=== PATIENT | female | born 1945 | race Caucasian/White ===

== ENCOUNTER 2016-07-03 11:44 | Emergency (ER) | payer OTHER ==
[~2016-07-03] VITALS: Ht 160 cm; Wt 113.4 kg
--- NOTE | ~2016-07-03 | EKG ---
[place] [address] [facility] [place] [address] ELECTROCARDIOGRAM REPORT Name: SHIRLEY RANGEL Room #: [facility]#: [id number] Admission: Attend Phys: Discharge: Date of : 47 Report #: [id number] THIS REPORT FOR: //name// [facility] ED Test Date: 2016-07-03 Test Time: 11:52:20 Pat Name: SHIRLEY RANGEL Department: Room: Gender: F [employer] Operator: : 1945 Requested By: Queta Solomon Order Number: [id number] MD: Rufino Kulkarni Measurements Intervals [place] Rate: 62 P: 51 ND: 160 QRS: 43 QRSD: 118 T: 40 QT: 400 QTc: 407 Interpretive Statements Sinus rhythm Atrial premature complexes Nonspecific ST and T wave abnormality No previous ECG available for comparison Electronically Signed On 07-03-2016 13:28:59 [employer] by Rufino Kulkarni [email or web address] <ELECTRONICALLY SIGNED> By: Rufino Kulkarni MD, [facility] 07/03/16 1328 1152 1152 Rufino Kulkarni MD, FACC /EPI
[~2016-07-03 11:44] MED LIST: AMBEREN PO; ASPIRIN EC325 M1 PO; COZAAR 25 MG TA25 MG PO; COZAAR 50 MG TA50 MG PO; HYDROCHLOROTH12.5 MG PO; HYDROCHLOROTHIA25 M1 PO; NORCO 5-325 TA1 EACH PO; NORFLEX100 MG PO; SYNTHROID150 MCG PO; SYNTHROID75 MCG PO; TOPROL XL50 MG PO
[2016-07-03] MEDS ORDERED: HYZAAR 50-12.51 EACH PO (12:17)
[2016-07-03 12:18] LABS: ABSOLUTE NEUTROPHILS 4.4 thou/uL (1.4-8.2); BASOPHILS 0.6 % (0.0-2.0); HEMATOCRIT 38.3 % (37.0-47.0); HEMOGLOBIN 13.1 gm/dL (12.0-15.0); LYMPHOCYTES 32.4 % (24.0-44.0); MCH 29.7 pg (26.0-34.0); MCHC 34.2 % (28.0-37.0); MCV 86.8 fL (80.0-100.0); MONOCYTES 6.3 % (1.0-8.0); PLATELET COUNT 175 thou/uL (150-400); POLYS 58.7 % (36.0-66.0); RBC 4.41 mil/uL (4.20-5.00); RDW 13.7 % (10.5-14.5); WBC 7.5 thou/uL (4.0-11.0)
[2016-07-03] MEDS ORDERED: LEVOTHYROXINE 0.1 MG PO (12:18)
[2016-07-03 12:19] LABS: MANUAL DIFF NO
[2016-07-03 12:28] LABS: ANION GAP 7 mmol/L (7-16); BUN 18 mg/dL (7-18); CALCIUM 9.2 mg/dL (8.5-10.1); CHLORIDE 100 mmol/L (98-107); CO2 31 mmol/L (21-32); GLUCOSE 142 mg/dL (70-99); POTASSIUM 3.4 mmol/L (3.5-5.1); SODIUM 138 mmol/L (136-145)
[2016-07-03 12:37] LABS: ALBUMIN 3.2 g/dL (3.4-5.0); ALKALINE PHOSPHATASE 88 U/L (46-116); SGOT 30 U/L (15-37); SGPT 38 U/L (30-65); TOTAL BILIRUBIN 0.5 mg/dL (<0.1-1.0); TOTAL PROTEIN 7.1 g/dL (6.4-8.2); TROPONIN-I < 0.04 ng/mL (<0.04-0.07)
[2016-07-03 14:12] LABS: URINE BILIRUBIN NEGATIVE (Negative); URINE BLOOD NEGATIVE (Negative); URINE COLOR YELLOW; URINE GLUCOSE-RANDOM* NEGATIVE (Negative); URINE KETONES NEGATIVE (Negative); URINE NITRITE NEGATIVE (Negative); URINE PROTEIN (DIPSTICK) NEGATIVE (Negative); URINE SPECIFIC GRAVITY 1.025 (1.003-1.035); URINE UROBILINOGEN 0.2 E.U./dl (0.2-1.0)
[2016-07-03 15:44] VITALS: BP 113/55
[2016-07-03 20:09] LABS: FREE T4 1.35 ng/dL (0.82-1.77); TSH 3.22 uIU/mL (0.450-4.500)
== END 2016-07-03 15:45 | disposition home or self-care (01) ==
LOC: ER 11:44
PROVIDERS: Emergency Medicine; Physician Assistant
DX: R00.2 Palpitations (principal); I10 Essential (primary) hypertension; E03.9 Hypothyroidism, unspecified; Z88.1 Allergy status to other antibiotic agents; Z88.8 Allergy status to other drugs, medicaments and biological substances; Z90.49 Acquired absence of other specified parts of digestive tract

== ENCOUNTER → 2017-04-10 | Outpatient (CLI) | payer OTHER ==
[~2017-04-10] VITALS: Ht 160 cm; Wt 112.0 kg
[~2017-04-10] MED LIST changes: +CENTRUM SILVER1 EAC4 PO; +HYZAAR 50-12.51 EACH PO; +LEVOTHYROXINE 0.1 MG PO; +PEPCID20 MG PO; +TUMS PO
--- NOTE | ~2017-04-10 | P ---
[facility] [place] [address] PROCEDURE REPORT Name: SHIRLEY RANGEL Room #: [facility]#: [id number] Admission: 04/10/17 Attend Phys: James Lam MD Discharge: Date of : 47 Report #: [id number] THIS REPORT FOR: //name// CC: James Gaxiola MD BRIEF HISTORY: The patient is a 71-year-old woman for average risk screening colonoscopy. PREOPERATIVE DIAGNOSIS: Average risk screening colonoscopy. POSTOPERATIVE DIAGNOSES: 1. Diverticulosis coli, right and left colon. 2. . MEDICATIONS: Deep sedation with propofol per anesthesia. SPECIMEN: None. ESTIMATED BLOOD LOSS: None. PROCEDURE: Colonoscopy to cecum and terminal ileum. FINDINGS: Prior to propofol sedation, procedure of colonoscopy was discussed with the patient as well as potential risks, benefits, and complications. She indicates she understands and desires to proceed. With the patient in left lateral decubitus position, digital examination was completed, which revealed no abnormalities. Subsequently, the [employer] video colonoscope was introduced into the rectum, advanced under direct vision to the cecum. Done with minimal difficulty. The cecum was identified by the ileocecal valve and the appendiceal orifice. I was able to visualize the distal segment of terminal ileum, which was inspected and noted to be unremarkable. At that point, the scope was slowly withdrawn and careful circumferential views obtained. Upon slow withdrawal of the scope, the prep was good. The mucosa was within normal limits, normal vascular pattern, and normal light reflex. She was noted to have moderately severe diverticular disease of the ascending colon without an endoscopic evidence of diverticulitis. Minimal diverticular disease was seen in the transverse colon, left colon, she had moderately severe diverticular disease most notably in the sigmoid colon and without evidence of diverticulitis. No neoplastic lesions were seen. Scope was withdrawn into the rectum and no abnormalities were noted. Upon retroflexion, no abnormalities were noted. Scope was withdrawn. The patient tolerated the procedure well. CONDITION OF THE PATIENT UPON DISCHARGE: Following procedure, the patient drowsy, aroused, conversant and will be discharged home when fully ambulatory. [facility] [address] [place] [address] PROCEDURE REPORT Name: SHIRLEY RANGEL Room #: [facility]#: [id number] Admission: 04/10/17 Attend Phys: James Lam MD Discharge: Date of : 47 Report #: [id number] INSTRUCTIONS TO THE PATIENT AND FAMILY AT THE TIME OF DISCHARGE: No neoplastic lesions were seen. She has is considered average risk. Therefore, I would suggest a followup colon exam in 10 years for an average risk patient. I would also suggest a high fiber diet for her diverticular disease. She will return to care of Dr. Matty Gaxiola and return to see me as needed. Last colonoscopy was 10 years ago. Withdrawal time from the cecum was 13 minutes and 6 seconds. <ELECTRONICALLY SIGNED> By: James Lam MD 04/10/17 [id number] 1245 James Lam MD /nt
== END ==
LOC: GI 06:52
DX: Z12.11 Encounter for screening for malignant neoplasm of colon (principal); K57.30 Diverticulosis of large intestine without perforation or abscess without bleeding; I10 Essential (primary) hypertension; I50.9 Heart failure, unspecified; I49.9 Cardiac arrhythmia, unspecified; E03.8 Other specified hypothyroidism; K21.9 Gastro-esophageal reflux disease without esophagitis; Z79.899 Other long term (current) drug therapy; Z88.8 Allergy status to other drugs, medicaments and biological substances; Z96.652 Presence of left artificial knee joint
CPT/HCPCS: 62110

== ENCOUNTER 2019-04-29 08:59 | Emergency (ER) | payer OTHER ==
[~2019-04-29] VITALS: Ht 160 cm; Wt 115.2 kg
[2019-04-29] MEDS ORDERED: JANUVIA100 MG PO (09:28)
[2019-04-29 12:05] VITALS: BP 122/66
== END 2019-04-29 12:37 | disposition home or self-care (01) ==
LOC: ER 08:59
DX: M25.561 Pain in right knee (principal); M79.661 Pain in right lower leg; M79.89 Other specified soft tissue disorders; I11.0 Hypertensive heart disease with heart failure; I50.9 Heart failure, unspecified; E03.9 Hypothyroidism, unspecified; K21.9 Gastro-esophageal reflux disease without esophagitis; Z90.49 Acquired absence of other specified parts of digestive tract; Z96.652 Presence of left artificial knee joint; Z88.1 Allergy status to other antibiotic agents

== ENCOUNTER → 2019-09-08 | Outpatient (CLI) | payer OTHER ==
[~2019-09-08] MED LIST changes: +JANUVIA100 MG PO
== END ==
LOC: SJCVC 10:08
DX: I11.0 Hypertensive heart disease with heart failure (principal); I50.32 Chronic diastolic (congestive) heart failure; E78.5 Hyperlipidemia, unspecified; I49.1 Atrial premature depolarization; E11.9 Type 2 diabetes mellitus without complications; E03.9 Hypothyroidism, unspecified; Z79.899 Other long term (current) drug therapy; Z79.84 Long term (current) use of oral hypoglycemic drugs

== ENCOUNTER → 2019-12-03 | Outpatient (CLI) | payer OTHER | LOC: RAD 10:39 | PROVIDERS: ATTEND Family Medicine | DX: Z12.31 Encounter for screening mammogram for malignant neoplasm of breast (principal) ==

== ENCOUNTER → 2020-03-13 | Outpatient (CLI) | payer OTHER | LOC: SJCVCIMAG 08:16 | PROVIDERS: ATTEND Internal Medicine | DX: I07.1 Rheumatic tricuspid insufficiency (principal); I11.0 Hypertensive heart disease with heart failure; I50.32 Chronic diastolic (congestive) heart failure; E78.5 Hyperlipidemia, unspecified; I49.1 Atrial premature depolarization; E11.9 Type 2 diabetes mellitus without complications ==

== ENCOUNTER → 2020-09-25 | Outpatient (CLI) | payer OTHER | LOC: SJCVC 09:51 | PROVIDERS: ATTEND Internal Medicine | DX: I11.0 Hypertensive heart disease with heart failure (principal); I50.32 Chronic diastolic (congestive) heart failure; E78.5 Hyperlipidemia, unspecified; I49.1 Atrial premature depolarization; E11.9 Type 2 diabetes mellitus without complications; E03.9 Hypothyroidism, unspecified; Z79.899 Other long term (current) drug therapy; Z88.8 Allergy status to other drugs, medicaments and biological substances ==

== ENCOUNTER → 2020-09-27 | Outpatient (CLI) | payer OTHER | LOC: ULTRA 08:42 | PROVIDERS: ATTEND Family Medicine | DX: N60.02 Solitary cyst of left breast (principal); N63.0 Unspecified lump in unspecified breast ==

== ENCOUNTER → 2021-04-02 | Outpatient (CLI) | payer OTHER | LOC: SJCVC 09:58 | PROVIDERS: ATTEND Internal Medicine | DX: I11.0 Hypertensive heart disease with heart failure (principal); I50.32 Chronic diastolic (congestive) heart failure; I49.1 Atrial premature depolarization; E11.9 Type 2 diabetes mellitus without complications; E78.5 Hyperlipidemia, unspecified; E03.9 Hypothyroidism, unspecified; Z88.8 Allergy status to other drugs, medicaments and biological substances; Z79.899 Other long term (current) drug therapy ==